=== PATIENT | female | born 1995 | race Caucasian/White ===

== ENCOUNTER 2022-05-25 09:22 | Outpatient (CLI) | payer OTHER, SELFPAY ==
--- NOTE | 2022-05-25 09:45 | CRLHL7_ITS ---
For Patients: As a result of the Century Cures Act, medical imaging exams and procedure reports are released immediately into your electronic medical record. You may view this report before your referring provider. If you have questions, please contact your health care provider. INDICATION: Dating and viability. TECHNIQUE: Ultrasound OB pelvis transabdominal and transvaginal. Real-time madrigal-scale imaging of the pelvis was performed. COMPARISON: None. FINDINGS: There is a single intrauterine gestation. The embryo demonstrates a regular cardiac rate measuring 168 beats per minute. The embryo`s crown rump length measurement of 3.3 cm corresponds to a gestational age of 10 weeks 1 day with a sonographic due date of 12/20/2022. There is a normal appearing yolk sac. There are no gross abnormalities noted within the embryo at this early state of development. The placenta has not yet developed. There is are signs of perigestational hemorrhage. Inferior subchorionic hemorrhage in the lower uterine segment measures 2.5 x 2.1 x 6.1 cm. Small focus of subchorionic hemorrhage in the left fundus measuring 2.4 x 1.5 x 0.8 cm. The ovaries are of normal size. Corpus luteum cyst on the right. There are no suspicious fluid collections noted in the cul-de-sac. IMPRESSION: 1. Single viable intrauterine with estimated gestational age of 10 weeks 1 day. Estimated due date is 12/20/2022. 2. Two areas of subchorionic hemorrhage largest in inferior posterior uterine segment measuring 6.1 x 2.5 x 2.1 cm. Dictated by Alfredo Archuleta MD @ 05/25/2022 10:54:36 AM (Electronically Signed)
== END 2022-05-25 09:23 | disposition home or self-care (01) ==
PROVIDERS: Visit Provider Advanced Practice Midwife
DX: Z34.91 Encounter for supervision of normal pregnancy, unspecified, first trimester (principal); O20.9 Hemorrhage in early pregnancy, unspecified; Z3A.10 10 weeks gestation of pregnancy
CPT/HCPCS: 76801

== ENCOUNTER 2022-05-25 11:05 | Outpatient (CLI) | payer OTHER, SELFPAY ==
[2022-05-25 14:14] LABS: Hepatitis B Surface Antigen* Negative (Negative)
[2022-05-25 14:56] LABS: HIV 1/2/P24 Combo Screen* Negative (Negative)
[2022-05-25 15:04] LABS: Hepatitis C Virus Antibody* Negative (Negative)
[2022-05-26 17:43] LABS: Rubella Antibody IgG 40.1 IU/mL
[2022-05-26 17:55] LABS: Rapid Plasma Reagin (RPR) Non Reactive (Non Reactive)
== END 2022-05-25 11:06 | disposition home or self-care (01) ==
PROVIDERS: Visit Provider Advanced Practice Midwife
DX: Z34.90 Encounter for supervision of normal pregnancy, unspecified, unspecified trimester (principal)
CPT/HCPCS: 86592; 86703; 86762; 86787; 86803; 86850; 86900; 86901; 87086; 87340

== ENCOUNTER 2022-07-31 14:58 | Outpatient (CLI) | payer OTHER, SELFPAY ==
--- NOTE | 2022-07-31 15:00 | CRLHL7_ITS ---
For Patients: As a result of the Century Cures Act, medical imaging exams and procedure reports are released immediately into your electronic medical record. You may view this report before your referring provider. If you have questions, please contact your health care provider. OBSTETRICAL ULTRASOUND, 07/31/2022 HISTORY: Basic anatomy screening. ENRRIQUE by LMP: 12/22/2021. GA: 19 weeks 3 days. Position: Multiple positions. Cervix: Visualized Technique: Transabdominal. Length of closed cervix: 4.4 cm. Placenta Position: Posterior. Technique: Transabdominal. Placenta tip to internal os: 4.8 cm. Umbilical cord: Three vessel cord. Placental Insertion: Central. Amniotic Fluid: 5 cm SDP ANATOMY (Observed Structures) Cerebellum: 2 cm, 20 weeks 2 days Cisterna Magna: 5.2 mm. Nuchal Fold: 2.6 mm. Lateral Ventricle: 6.1 mm. CSP. Choroid Plexus. Midline Falx. Spine. Stomach. Abd Cord Insertion. Urinary Bladder. Kidneys. Diaphragm. Nose/lips. Orbital view. Profile. Upper Extremities. Lower Extremities. Hands/Feet. 4-chamber heart. LVOT. RVOT. 3VV. 3VTV. BIOMETRY BPD: 4.7 cm, 20 weeks 1 day, 81%. HC: 17.5 cm, 20 weeks 0 days, 71%. AC: 16.2 cm, 21 weeks 2 days, 93%. FL: 3.2 cm, 19 weeks 6 days, 57%. FL/AC: 19.5%. HC/AC Ratio: 1.08 Heart Rate: 147 bpm. age by this US: 20 weeks 2 days. ENRRIQUE by this US: 12/16/2022. EFW: 361 grams, 0 lbs 13 oz. Percentile by ENRRIQUE: 96. IMPRESSION: Single live intrauterine gestation. No gross anomalies visualized. Mera Chung M.D. Diagnostic/Breast Radiologist [email or web address] LIZA/delia / DW/Dictated by: Mera Chung MD @ 08/02/2022 5:45:00 AM (Electronically Signed)
== END 2022-07-31 14:59 | disposition home or self-care (01) ==
LOC: US 14:58
PROVIDERS: Visit Provider Advanced Practice Midwife
DX: Z34.92 Encounter for supervision of normal pregnancy, unspecified, second trimester (principal); Z3A.19 19 weeks gestation of pregnancy
CPT/HCPCS: 76805

== ENCOUNTER 2022-10-07 15:46 | Outpatient (CLI) | payer OTHER, SELFPAY ==
[2022-10-08 23:16] LABS: Rapid Plasma Reagin (RPR) Non Reactive (Non Reactive)
== END 2022-10-07 15:47 | disposition home or self-care (01) ==
PROVIDERS: Visit Provider Advanced Practice Midwife
DX: Z34.90 Encounter for supervision of normal pregnancy, unspecified, unspecified trimester (principal)
CPT/HCPCS: 86592

== ENCOUNTER 2022-11-25 10:56 | Outpatient (CLI) | payer OTHER, SELFPAY | END 2022-11-25 10:57 | disposition home or self-care (01) | PROVIDERS: PCP Advanced Practice Midwife; Referring Provider Advanced Practice Midwife; Visit Provider Advanced Practice Midwife | DX: O99.113 Other diseases of the blood and blood-forming organs and certain disorders involving the immune mechanism complicating pregnancy, third trimester (principal); D69.6 Thrombocytopenia, unspecified; Z3A.36 36 weeks gestation of pregnancy | CPT/HCPCS: 87081; 87653 ==

== ENCOUNTER 2022-12-25 03:02 | Inpatient (IN) | payer OTHER, SELFPAY ==
[2022-12-25] VITALS (14 sets, daily range): BP systolic 112–132; BP diastolic 65–82; PULSE 89–111; RESP 16–18; TEMP 36.5–37.2; O2SAT 96–100; BMI 27.2
[2022-12-25] MEDS: LACTATED RINGERS 1000 ML 1,000 ML 200 ML IV (02:00)
[2022-12-25] MEDS: AMPICILLIN 2 GM in 0.9 % SODIUM CHLORIDE Mini-bag 100 ML IVPB (02:02)
[2022-12-25 02:21] LABS: Eosinophils Absolute Auto 0.17 K/uL (0.00-0.50); Eosinophils Percent Auto 1.8 % (0.0-7.0); Hematocrit 39.3 % (33.0-51.0); Hemoglobin* 13.3 gm/dL (12.0-16.0); Immature Granulocytes Abs Auto 0.04 K/uL (0.00-0.30); Immature Granulocytes Pct Auto 0.4 %; Lymphocytes Percent Auto 21.2 % (20-44); Mean Corpuscular HGB Conc 34 gm/dL (32-36); Mean Corpuscular Hemoglobin 31 pg (26-34); Mean Corpuscular Volume 91 fL (80-100); Neutrophils Absolute Auto 6.56 K/uL (1.7-7.0); Neutrophils Percent Auto 69.6 % (42.0-72.0); Platelet Count* 83 K/uL (140-440); RDW Coefficient of Variation % 12.3 % (11.5-15.5); Red Blood Count 4.31 m/uL (4.00-5.20); White Blood Count* 9.43 K/uL (4.50-11.00)
--- NOTE | 2022-12-25 02:22 | P.LDBA_ITS ---
Documented by User: Raquel Canseco 12/25/22 02:44 Subjective History of Present Illness Date Seen: 12/25/22 Narrative: Anisa is being admitted to Labor and Delivery for active labor. She is a 27 year old at 40.3weeks gestation. Her contractions started this afternoon around 1645, she noticed bloody show but no leaking of fluid, on admission she was 6cm. Her full history and physical was done 12/02 by Conchita Barrios CNM. 1. Subchorionic Hemorhages x 2 RESOLVED lower uterine segment measures 2.5 x 2.1 x 6.1 cm. Small focus in the left fundus measuring 2.4 x 1.5 x 0.8 cm Not seen or noted on Anatomy scan 2. Thrombocytopenia of , NEEDS CBC on admission Plts at NOB 135 29 weeks: 101 (10/07/22) 36 weeks: 81, patient aware that epidural is unlikely; offered anesthesia consult, declined TXA RECOMMENDED PRIOR TO DELIVERY Had with previous 2 pregnancies and was unable to get epidural w/ 2nd delivery; has had testing outside -avoid scalp lead if under 80. Avoid vacuum also 3. History of breast abscess with last child 4. GBS positive, needs antibiotics in labor, ok with 5. IOL scheduled 12/29. If seen for appt before, needs consent signed OB - Problem Based A/P Additional Plan (1) 40 weeks gestation of : Status: Acute (2) Pain during labor: Status: Acute (3) Thrombocytopenia affecting : Status: Acute Plan ASSESSMENT:? 27 at 40.3 weeks gestation? complicated by:?Thrombocytopenia, Positive GBS, ALISE times two now resolved, has Hx of breast abcess with Labor type: Spontaneous, Active labor? Category 1 FHR pattern.?? Labor complicated by: Thrombocytopenia? GBS positive? ? PLAN:? 1. Routine intrapartum cares as ordered. Continue with expectant management? 2. Monitoring per policy, intermittent? 3. Planning unmedicated . Is not a candidate for an epidural due to her low platelet level.? 4. Patient encouraged to reposition and ambulate to promote physiologic labor and .? 5. Plan to give IV Pitocin for AMTSL and TXA after for low platelets 5. GBS phrophylaxis initiated for GBS positive status. Will treat with antibiotics per protocol. 6. Anticipate Delivery/Labor/Induction Plan Plan: expectant management OB Exam Physical Exam Vital signs: Vitals Reviewed? Psychiatric:? Alert and oriented x3? HEENT:? Normocephalic, atraumatic? Neck:? Supple?? Lungs:? Clear to auscultation bilaterally? Heart:? Regular rate and rhythm, no murmur, rub or gallop? Abdomen:? Soft, nontender, and gravid. Vertex by Slade's, confirmed with cervical exam.? Extremities:? No edema or erythema Detailed Labor and Delivery Exam Patient Gravid: Yes Dilation (cm): 6 Contraction Frequency: 2-3 Contraction duration (sec): 60 Tachysystole: No Contraction intensity: Strong/Firm Fetus (Single) Amniotic Membrane Status: intact Monitor Accelerations: Present Monitor Decelerations: None Supervising Editor News Reel Variability: Moderate (6-25) Documented by User: Nargis Barrios CNM 12/25/22 13:35 Subjective History of Present Illness Narrative: Anisa is being admitted to Labor and Delivery for active labor. She is a 27 year old at 40.3weeks gestation. Her contractions started this afternoon around 1645, she noticed bloody show but no leaking of fluid, on admission she was 6 cm. Her full history and physical was done 12/02 by Conchita Barrios CNM. 1. Subchorionic Hemorhages x 2 RESOLVED lower uterine segment measures 2.5 x 2.1 x 6.1 cm. Small focus in the left fundus measuring 2.4 x 1.5 x 0.8 cm Not seen or noted on Anatomy scan 2. Thrombocytopenia of , NEEDS CBC on admission Plts at NOB 135 29 weeks: 101 (10/07/22) 36 weeks: 81, patient aware that epidural is unlikely; offered anesthesia consult, declined TXA RECOMMENDED PRIOR TO DELIVERY Had with previous 2 pregnancies and was unable to get epidural w/ 2nd delivery; has had testing outside -avoid scalp lead if under 80. Avoid vacuum also 3. History of breast abscess with last child 4. GBS positive, needs antibiotics in labor, ok with 5. IOL scheduled 12/29. If seen for appt before, needs consent signed OB - Problem Based A/P Additional Plan (1) 40 weeks gestation of : Status: Acute (2) Pain during labor: Status: Acute (3) Thrombocytopenia affecting : Status: Acute Plan ASSESSMENT:? 27 at 40.3 weeks gestation? complicated by: Labor type: Spontaneous, Active labor? Category 1 FHR pattern.?? Labor complicated by: Thrombocytopenia? GBS positive? ? PLAN:? 1. Routine intrapartum cares as ordered. Continue with expectant management? 2. Monitoring per policy, intermittent? 3. Planning unmedicated . Is not a candidate for an epidural due to her low platelet level.? 4. Patient encouraged to reposition and ambulate to promote physiologic labor and .? 5. GBS phrophylaxis initiated for GBS positive status. Will treat with antibiotics per protocol. 6. Anticipate
[2022-12-25 02:34] LABS: Slide Review Reflex No
[2022-12-25 03:00] LABS: SARS PCR* Negative SARS-CoV-2 (Negative)
[2022-12-25] MEDS: AMPICILLIN 1 GM in 0.9 % SODIUM CHLORIDE Mini-bag 100 ML IVPB (05:24)
--- NOTE | 2022-12-25 07:47 | W.PM.VAGDE_ITS ---
Documented by User: Raquel Canseco 12/25/22 08:03 OB Procedure Vag Delivery Mother Details Mother Details: The patient is a 27 year-old, 3, Para 2, admitted on 12/25/22 at 40.3 weeks gestation in active labor she was 6 cm on admission. She labored unmedicated in the tub and changed positions often. After 4 hours of contractions she was 8 cm with a bulging bag of water. Discussed R/B/A with the patient of waiting longer for cervical change or AROM to augment labor and pat ient chose to have AROM at that time. Patient was GBS positive and had received adequate treatment at that time. Clear fluid was noted and patient continued to contract and change positions often until she felt pressure. She had a anterior rim but was able to push and the cervix reduced as fetus descended. She was complete and pushing at 0657, pushed well and delivered male infant at 0724. : 3 Para: 3 Weeks Gestation: 40.3 Admission Date: 12/25/22 Additional Details Amniotic Membrane Status: AROM Amniotic Membrane Rupture Date: 12/25/22 Amniotic Membrane Rupture Time: 05:59 Amniotic Membrane Fluid Description: Clear Analgesia/Anesthesia Type: None Waterbirth: No Pitcoin: Yes (AMTSL and TXA given ) Intrapartal Events: None Delivery augmentation: rupture of membranes Labor Onset: 16:45 Complete: 06:57 Pushin:57 Heart: heart tones during second stage were intermittently monitored, FHR 120 no audible decelerations heard. Delivery Details Delivery Date: 12/25/22 Delivery Time: 07:24 Route of delivery: Gender: Male Infant Viability: Alive; Heart Rate Present Position at Delivery: OA Delivery Details: Patient had an uncomplicated labor that progressed normally to complete. Patient pushed well in multiple positions. of a viable male at 0724 in low fowlers . Vertex delivered OA. No nuchal cord or shoulder. Body delivered easily and without incident. Infant passed to mothers abdomen with a vigorous cry. Cord was clamped and cut at > 5 minutes. APGARS were 8 at one minute and 9 at five minutes respectively. Mouth was bulb suctioned. Intact placenta with a 3 vessel cord delivered spontaneously. IV Pitocin and TXA was given after delivery of the baby for AMTSL and low platelets of 83. Fundus firm. No tear identified. QBL 75 cc. Mother and baby stable; mother plans to breastfeed. weight pending. 1 Minute Interval Total Score: 8 5 Minute Interval Total Score: 9 Additional Details Shoulder Dystocia: No Placenta Delivery Time: 07:37 Placental Delivery Description: Spontaneous Procedure Done: Global Blood Loss: 75 Laceration: None Blood Loss Measurement Type: QBL Bakri Used: No Sponge/Need Count Correct: Yes Cord Vessel Description: 3 Vessels Event Summary Status: Mother and infant were stable after delivery. Disposition: floor Documented by User: Nargis Barrios CNM 12/25/22 13:24 OB Procedure Vag Delivery Additional Details Labor Onset: 01:30 (onset of regular painful contractions, arrival to hospital) Delivery Details Delivery Details: Patient had an uncomplicated labor that progressed normally to complete. Patient pushed well in multiple positions. of a viable male at 0724 in low fowlers . Vertex delivered OA. No nuchal cord or shoulder. Body delivered easily and without incident. passed to mothers abdomen with a vigorous cry. Cord was clamped and cut at > 5 minutes. APGARS were 8 at one minute and 9 at five minutes respectively. Mouth was bulb suctioned. Intact placenta with a 3 vessel cord delivered spontaneously. IV Pitocin and TXA was given after delivery of the baby for AMTSL and low platelets of 83. Fundus firm. No tear identified. QBL 75 cc. Mother and baby stable; mother plans to breastfeed. weight pending. MATTI Ye with supervision of Nargis Barrios CNM
[2022-12-25] MEDS: ACETAMINOPHEN 500 MG TABLET 1000 MG PO ×2 (12:19→19:46)
[2022-12-26] VITALS: BP 134/88; PULSE 81; RESP 16; TEMP 36.4; O2SAT 96
[2022-12-26 04:19] VITALS: BP 112/77; PULSE 94; RESP 18; TEMP 36.5; O2SAT 96
[2022-12-26 07:52] VITALS: BP 125/90; PULSE 101; RESP 16; TEMP 36.3; O2SAT 95
[2022-12-26] MEDS: DOCUSATE SODIUM 100 MG CAPSULE PO (08:18)
[2022-12-26] MEDS: IBUPROFEN 600 MG TABLET PO (08:18)
--- NOTE | 2022-12-26 09:22 | P.DS_ITS ---
DS: Providers Provider Time Seen by Provider: : Date Seen: 12/26/22 Date of admission: 12/25/22 03:02 Primary care physician: Neva Freedman CNM Admitting Clinician: Nargis Barrios CNM Attending Physician on discharge: Nargis Barrios CNM Date of Discharge: 12/26/22 DS: Diagnosis Discharge Diagnosis (1) NVD (normal vaginal delivery): Status: Acute (2) Lactating mother: Status: Acute Exam Narrative: Exam Narrative: VSS, afebrile GENERAL APPEARANCE: ?normal affect, alert, no distress MOOD: ?appropriate HEENT: normocephalic, neck supple, full ROM CHEST: ?Symmetrical chest wall movement. ?Normal respiratory effort. ?Clear to auscultation HEART: ?regular rate and rhythm ABDOMEN: ?soft, non-tender. Uterine fundus is firm, at Umbilicus, Midline and is appropriate for the stage of recovery. ?Bowel sounds present. PERINEUM: ?Moderate edema of the perineum, there is no laceration EXTREMITIES: ?normal and no edema Const: Vital Signs, click to edit/add: Vital Signs - 24 hr 12/25/22 09:28 12/25/22 09:43 12/25/22 12:00 Temperature 98.9 F Pulse Rate 105 H 101 H Pulse Rate [Pulse Oximeter] 101 H Respiratory Rate 16 Blood Pressure 120/74 115/74 Blood Pressure [Ri ght Arm] 115/78 Pulse Oximetry 100 Oxygen Delivery Me thod Room Air 12/25/22 16:55 12/25/22 20:00 12/26/22 00:00 Temperature 97.7 F 98 F 97.5 F L Pulse Rate Pulse Rate [Pulse Oximeter] 102 H 89 81 Respiratory Rate 18 16 16 Blood Pressure Blood Pressure [Ri ght Arm] 118/82 112/77 134/88 Pulse Oximetry 96 96 96 Oxygen Delivery Me thod Room Air Room Air Room Air 12/26/22 04:19 12/26/22 07:52 Temperature 97.7 F 97.4 F L Pulse Rate Pulse Rate [Pulse Oximeter] 94 101 H Respiratory Rate 18 16 Blood Pressure Blood Pressure [Ri ght Arm] 112/77 125/90 H Pulse Oximetry 96 95 Oxygen Delivery Me thod Room Air Room Air Documenting provider has reviewed patient's vital signs: yes OB - DS: Summary Hospital Course Hospital Course: Anisa is a 27 y.o. G 3 P 3 who was admitted to [facility] for labor. ?She had an uncomplicated NVD The patient feels well. ?The pain is well controlled with current medications. ?She has no new complaints. ?She is breast feeding and reports things are going ok. Still having pain w/ latch at times, and has nipple trauma bilaterally.? the patient has done well.? Vitals have been stable.? She has remained afebrile.? Has a good appetite, is tolerating a general diet. ?She is voiding without difficulty.? She is passing gas and has not had a bowel movement.? She is ambulating and denies any dizziness.? Has Small amount of rubra lochia. She is planning condoms and partner vasectomy for prevention. BP slightly elevated this last check. Will confirm WNL prior to discharge. Aware of preeclampsia signs/when to call. Problems: none plan: Discharge home with baby. Follow up in 2 weeks and 6 weeks. , may follow up with if needed. Hx of breast abscess. Reviewed comfort measures for nipple trauma, all purpose nipple ointment, and signs of infection to be seen for. Thrombocytopenia Peripartum Data delivery method: Vaginal Laceration description: None complications: none [place] Infant Gender: Male Status at Discharge Functional status at discharge: independent ambulation Overall status at discharge: patient is progressing back to baseline Time Spent with Patient Time attestation: Total time spent providing and/or coordinating discharge services: Time spent: Less than 30 minutes Discharge Plan Discharge Disposition: Home, Self-Care Date of Admission: 12/25/22 03:02 Attending Provider on Discharge: Neva Freedman Primary Care Provider: Neva Freedman Condition: Stable Anticipated Discharge Date/Time: 12/26/22 11:30 Discharge Medications: New docusate sodium 100 mg Capsule 100 mg PO BID PRNQty: 100 0RF Rx Instructions: Take 1 cap 1-2 times a day as needed for constipation ibuprofen 600 mg Tablet 600 mg PO Q6H PRNQty: 60 0RF Continued prenat.vits,jarad,[id number] Tablet 1 tab PO QDAY Lactobacillus rhamnosus GG 10 billion cell capsule 2 cap PO QDAY cholecalciferol (vitamin D3) 62.5 mcg (2,500 unit) capsule 62.5 mcg PO DAILY Floradix 15 mg liquid 20 ml PO DAILY Discharge Orders: Discharge Order (Routine); Ordered 12/26/22 Ordered By: Neva Freedman Patient Education: OB Over the Counter Medication Information, OB Vaginal/Breast Feeding Additional Instructions: Follow up n 2 weeks and 6 weeks Activity Level: Activity as Tolerated Discharge Diet: Regular Follow Up Appointments: Neva Freedman CNM [Primary Care Provider] - Forms: [facility] Info Instructions
== END 2022-12-26 14:30 | disposition home or self-care (01) | DRG 807 ==
LOC: OB OUT 12-28 16:02 → OB 12-28 16:02
PROVIDERS: Admitting Provider Advanced Practice Midwife; PCP Advanced Practice Midwife; Visit Provider Advanced Practice Midwife
DX: O99.824 Streptococcus B carrier state complicating childbirth (principal); Z37.0 Single live birth; O99.12 Other diseases of the blood and blood-forming organs and certain disorders involving the immune mechanism complicating childbirth; D69.6 Thrombocytopenia, unspecified; Z3A.40 40 weeks gestation of pregnancy
CPT/HCPCS: 36415; 85025; 86850; 86900; 86901; 87635; 99213; A9270; J0290; J7120